=== PATIENT | male | born 1945 | race Caucasian/White ===

== ENCOUNTER 2020-05-18 13:04 | Outpatient (REF) | payer MEDICARE, MEDICAID, SELFPAY | END 2020-05-18 13:05 | disposition home or self-care (01) | LOC: HO.HMGCLDS 13:04 | PROVIDERS: Visit Provider Internal Medicine | DX: Z20.828 Contact with and (suspected) exposure to other viral communicable diseases (principal) | CPT/HCPCS: C9803; U0003 ==